=== PATIENT | male | born 1950 | race Native Hawaiian/Other Pacific Islander ===

== ENCOUNTER 2020-07-10 12:16 | Emergency (ER) | payer OTHER ==
[~2020-07-10] VITALS: Ht 175.3 cm; Wt 90.7 kg
[2020-07-10 12:16] VITALS: TEMP 98.6
[2020-07-10 12:57] LABS: PLATELET COUNT 272 K/uL (142-355)
[2020-07-10 13:08] LABS: POTASSIUM 4.5 mmol/L (3.6-5.2); SODIUM 139 mmol/L (136-145)
[2020-07-10 13:11] LABS: PARTIAL THROMBOPLASTIN TIME 24.6 SECONDS (24.5-33.6)
[2020-07-10 17:30] VITALS: BP 133/83
== END 2020-07-10 17:45 | disposition home or self-care (01) ==
LOC: ED 12:23
PROVIDERS: Hospitalist
DX: J32.8 Other chronic sinusitis (principal); R11.2 Nausea with vomiting, unspecified; R42 Dizziness and giddiness; Z03.818 Encounter for observation for suspected exposure to other biological agents ruled out
CPT/HCPCS: 36415; 80053; 80320; 82150; 82550; 83690; 83880; 84484; 85027; 85610; 85730; 87635; 93005; 96360; 96365; 96375; 99284; J2405; J2543; U0003